=== PATIENT | female | born 1970 | race Hispanic/Latino ===

== ENCOUNTER 2020-10-28 08:59 | Outpatient (CLI) | payer SELFPAY ==
[2020-10-28 17:16] LABS: SARS-CoV-2 PCR by NAA Not Detected (NotDetected)
== END 2020-10-28 09:00 | disposition home or self-care (01) ==
LOC: CSHLAB 08:59
PROVIDERS: ATTEND Internal Medicine Gastroenterology
DX: Z20.822 Contact with and (suspected) exposure to COVID-19 (principal); Z12.11 Encounter for screening for malignant neoplasm of colon
CPT/HCPCS: 87635; U0003; U0005

== ENCOUNTER 2020-11-02 10:19 | Day surgery (SDC) | payer OTHER ==
[2020-10-30 12:40] VITALS: BMI 32.9
[2020-11-02] MEDS ORDERED: Lidocaine 1% MPF 2 ML VIAL ONE (11:22)
[2020-11-02] MEDS ORDERED: PROPOFOL 40 ML ONE (11:58)
[2020-11-02] MEDS ORDERED: PROPOFOL 20 ML ONE (12:45)
== END 2020-11-02 13:50 | disposition home or self-care (01) ==
LOC: CSHSDC 10:19
PROVIDERS: ATTEND Internal Medicine Gastroenterology
DX: Z12.11 Encounter for screening for malignant neoplasm of colon (principal); D12.2 Benign neoplasm of ascending colon; K57.30 Diverticulosis of large intestine without perforation or abscess without bleeding; K64.9 Unspecified hemorrhoids
CPT/HCPCS: 88305; J2704